=== PATIENT | female | born 1970 | race African-American/Black ===

== ENCOUNTER 2018-01-07 19:14 | Day surgery (SDC) | payer BC ==
[2018-01-07] MEDS ORDERED: ONDANSETRON 4 MG/2 ML VIAL IVPUSH ONE (19:42)
[2018-01-07] MEDS ORDERED: SODIUM CHLORIDE 0.9% 500 ML INFUS.BAG IV ONE (19:42)
[2018-01-07] MEDS ORDERED: ACETAMINOPHEN 1000 MG/100 ML VIAL (NON FORMULARY) IVPB ONE (19:50)
[2018-01-07] MEDS ORDERED: ONDANSETRON 4 MG/2 ML VIAL ONE (19:51)
[2018-01-07] MEDS ORDERED: ACETAMINOPHEN INJECTION 100 ML IVPB ONE (19:51)
[2018-01-07 19:55] LABS: URINE APPEARANCE Clear; URINE BILIRUBIN Negative (NEGATIVE); URINE COLOR Yellow; URINE GLUCOSE (UA) Negative (NEGATIVE); URINE KETONE Negative (NEGATIVE); URINE LEUK ESTERASE Negative (NEGATIVE); URINE NITRITE Negative (NEGATIVE); URINE PROTEIN Negative (NEGATIVE); URINE UROBILINOGEN 0.2 (0.2-1.0)
[2018-01-07 19:56] LABS: EOS % 1.6 % (0-4.5); HEMOGLOBIN 12.8 GM/dl (10.7-15.3); MCH 27.9 pg (25.7-33.7)
--- NOTE | 2018-01-07 19:59 | PDOC ---
History of Present Illness <Wes Hemphill - Last Filed: 01/07/18 21:53> - History of Present Illness Initial Comments: 01/07/18 20:28 The patient is a 47 year old female, with no significant past medical or surgical history, who presents to the emergency department with 3 weeks of intermittent epigastric discomfort, nausea, and NBNB vomiting. The patient describes her epigastric pain as radiating to her back and worsening after eating fried or greasy food. She reports the pain to be at its worse today and 5 days ago. Today her symptoms onset after eating bruschetta and drinking a glass of wine. She reports normal bowel movements. The patient reports doing a cleanse last night to help her move her bowels. She denies recent fevers, chills, headache or dizziness. She denies recent diarrhea or constipation. She denies recent dysuria, frequency, urgency or hematuria. She denies recent chest pain or shortness of breath. Allergies: NKA Past surgical history: None reported. Social history: Social alcohol use. Nonsmoker. Denies recreational drug use. <Federica Soria - Last Filed: 01/07/18 22:44> - General Chief Complaint: Pain Stated Complaint: EPIGASTRICPAIN Time Seen by Provider: 01/07/18 19:41 Past History <Wes Hemphill - Last Filed: 01/07/18 21:53> - Past Medical History COPD: No Other medical history: DENIES - Immunization History Td Vaccination: No - Suicide/Smoking/Psychosocial Hx Smoking Status: No Smoking History: Never smoked Years of Tobacco Use: 0 Number of Cigarettes Smoked Daily: 0 Information on smoking cessation initiated: No Hx Alcohol Use: Yes (2-3 TIMES/WEEK) Drug/Substance Use Hx: No Substance Use Type: Alcohol <Federica Soria - Last Filed: 01/07/18 22:44> - Past Medical History Allergies/Adverse Reactions: Allergies Allergy/AdvReac Type Severity Reaction Status Date / Time No Known Allergies Allergy Unverified 01/07/18 19:16 Home Medications: Ambulatory Orders NK [No Known Home Medication] 01/07/18 Review of Systems - Review of Systems Comments:: 01/07/18 19:59 GENERAL/CONSTITUTIONAL: No fever or chills. No weakness. HEAD, EYES, EARS, NOSE AND THROAT: No change in vision. No ear pain or discharge. No sore throat. GASTROINTESTINAL: +nausea, vomiting, abd pain, no diarrhea or constipation. GENITOURINARY: No dysuria, frequency, or change in urination. CARDIOVASCULAR: No chest pain or shortness of breath. RESPIRATORY: No cough, wheezing, or hemoptysis. MUSCULOSKELETAL: No joint or muscle swelling or pain. No neck or back pain. SKIN: No rash NEUROLOGIC: No headache, vertigo, loss of consciousness, or change in strength/ sensation. ENDOCRINE: No increased thirst. No abnormal weight change. HEMATOLOGIC/LYMPHATIC: No anemia, easy bleeding, or history of blood clots. ALLERGIC/IMMUNOLOGIC: No hives or skin allergy. <Federica Soria - Last Filed: 01/07/18 22:44> *Physical Exam - Vital Signs Last Vital Signs Temp Pulse Resp BP Pulse Ox 99.4 F 96 H 18 130/84 100 01/07/18 19:15 01/07/18 19:15 01/07/18 19:15 01/07/18 19:15 01/07/18 19:15 <Wes Hemphill - Last Filed: 01/07/18 21:53> - Vital Signs Last Vital Signs Temp Pulse Resp BP Pulse Ox 99.4 F 96 H 18 130/84 100 01/07/18 19:15 01/07/18 19:15 01/07/18 19:15 01/07/18 19:15 01/07/18 19:15 - Physical Exam Comments: 01/07/18 20:02 GENERAL: Awake, alert, and fully oriented, appears uncomfortable. HEAD: No signs of trauma EYES: PERRLA, EOMI, sclera anicteric, conjunctiva clear ENT: Auricles normal inspection, hearing grossly normal, nares patent, oropharynx clear without exudates. Moist mucosa NECK: Normal ROM, supple, no lymphadenopathy, JVD, or masses LUNGS: Breath sounds equal, clear to auscultation bilaterally. No wheezes, and no crackles HEART: Regular rate and rhythm, normal S1 and S2, no murmurs, rubs or gallops ABDOMEN: Soft, +mild epigastric and RUQ ttp, equivocal grewal's sign, normoactive bowel sounds. No guarding, no rebound. No masses. Denies CVAT. EXTREMITIES: Normal range of motion, no edema. No clubbing or cyanosis. No cords, erythema, or tenderness. WWP, equal pulses b/l. NEUROLOGICAL: Normal speech, cranial nerves intact, negative pronator drift, 5/ 5 strength in all 4 extremities, normal sensation to light touch in all 4 extremities, normal cerebellar exam, normal reflexes and tone. SKIN: Warm, Dry, normal turgor, no rashes or lesions noted. <Yang,Justina - Last Filed: 01/07/18 22:44> ED Treatment Course - LABORATORY CBC & Chemistry Diagram: 01/07/18 19:45 01/07/18 19:45 - ADDITIONAL ORDERS Additional order review: Laboratory Results 01/07/18 01/07/18 01/07/18 19:48 19:48 19:45 PTT (Actin FS) Sodium 134 L Potassium 3.8 Chloride 105 Carbon Dioxide 25 Anion Gap 4 L BUN 10 Creatinine 0.7 Creat Clearance w eGFR > 60 Random Glucose 117 H Calcium 8.7 Total Bilirubin < 0.3 AST 22 ALT 20 Alkaline Phosphatase 96 H Troponin I < 0.03 Total Protein 7.6 Albumin 3.6 Urine Color Yellow Urine Appearance Clear Urine pH 6.0 Ur Specific [place] >= 1.030 H Urine Protein Negative Urine Glucose (UA) Negative Urine Ketones Negative Urine Blood Trace-intact H Urine Nitrite Negative Urine Bilirubin Negative Urine Urobilinogen 0.2 Ur Leukocyte Esterase Negative Urine RBC 2-5 Urine WBC 0-2 Urine Bacteria Few 01/07/18 19:45 PTT (Actin FS) 27.0 Sodium Potassium Chloride Carbon Dioxide Anion Gap BUN Creatinine Creat Clearance w eGFR Random Glucose Calcium Total Bilirubin AST ALT Alkaline Phosphatase Troponin I Total Protein Albumin Urine Color Urine Appearance Urine pH Ur Specific [place] Urine Protein Urine Glucose (UA) Urine Ketones Urine Blood Urine Nitrite Urine Bilirubin Urine Urobilinogen Ur Leukocyte Esterase Urine RBC Urine WBC Urine Bacteria 01/07/18 19:45 RBC 4.58 MCV 85.9 MCHC 32.5 RDW 13.7 MPV 9.7 Neutrophils % 51.0 Lymphocytes % 32.9 Monocytes % 10.2 Eosinophils % 1.6 Basophils % 4.3 H - Medications Given in the ED: ED Medications Discontinued Medications Generic Name Dose Route Start Last Admin Trade Name Freq PRN Reason Stop Dose Admin Acetaminophen 1,000 mg 01/07/18 19:50 01/07/18 19:56 Ofirmev Injection - IVPB 01/07/18 19:51 1,000 mg ONCE ONE Administration Ondansetron HCl 4 mg 01/07/18 19:42 01/07/18 19:56 Zofran Injection IVPUSH 01/07/18 19:43 4 mg ONCE ONE Administration Sodium Chloride 1,000 ml 01/07/18 19:42 01/07/18 19:49 Normal Saline - IV 01/07/18 19:43 1,000 ml ONCE ONE Administration <Wes Hemphill - Last Filed: 01/07/18 21:53> - LABORATORY CBC & Chemistry Diagram: 01/07/18 19:45 01/07/18 19:45 - RADIOLOGY Radiology Studies Ordered: Category Date Time Status ABDOMEN US -LIMITED [US] Stat Ultrasound 01/07/18 19:42 Ordered - Medications Given in the ED: ED Medications Discontinued Medications Generic Name Dose Route Start Last Admin Trade Name Freq PRN Reason Stop Dose Admin Sodium Chloride 1,000 ml 01/07/18 19:42 01/07/18 19:49 Normal Saline - IV 01/07/18 19:43 1,000 ml ONCE ONE Administration <Nassef,Yomna - Last Filed: 01/07/18 22:44> Medical Decision Making - Medical Decision Making 01/07/18 9:36pm Call placed to Dr. Thompson, surgeon construction electrician, case was discussed. <Wes Hemphill - Last Filed: 01/07/18 21:53> - Medical Decision Making 01/07/18 20:03 47-year-old female with no significant past medical history presents emergency Department with intermittent progressive epigastric pain for 4 weeks. Vitals with low-grade fever to 99.6. Exam with mild epigastric and RUQ tenderness to palpation. Differential includes but not limited to pancreatitis versus cholecystitis versus gastritis. Plan: -labs -UA -US -pain meds -antiemetics -IVF -reassess 01/07/18 21:50 Labs with elevated alk phos to 90s, otherwise wnl US on my read with multiple stones, one in neck, and wall thickening consistent with likely acute jamal Case discussed with Dr. Thompson who requests admission to [facility]. Will cover with Zosyn. Pt to be admitted to Dr. Thompson service ([facility]) <Federica Soria - Last Filed: 01/07/18 22:44> *DC/Admit/Observation/Transfer - Attestations Scribe Attestion: 01/07/18 20:32 Documentation prepared by Wes Hemphill, acting as director medical writing for Federica Soria MD. <Wes Hemphill - Last Filed: 01/07/18 21:53> - Discharge Dispostion Decision to Admit order: Yes - Attestations Physician Attestion: 01/07/18 22:21 I, Dr. Federica Soria MD, attest that this document has been prepared under my direction and personally reviewed by me in its entirety. I further attest, that it accurately reflects all work, treatment, procedures and medical decision -making performed by me. <Federica Soria - Last Filed: 01/07/18 22:44> Diagnosis at time of Disposition: Acute cholecystitis - Discharge Dispostion Condition at time of disposition: Stable
[2018-01-07 20:00] LABS: BASO % 4.3 % (0-2.0); HEMATOCRIT 39.3 % (32.4-45.2); LYMPH % 32.9 % (8-40); MCHC 32.5 g/dl (32.0-36.0); MEAN CELL VOLUME 85.9 fl (80-96); MEAN PLT VOLUME 9.7 fl (7.5-11.1); MONO % 10.2 % (3.8-10.2); PLATELET COUNT 267 K/MM3 (134-434); RBC 4.58 M/mm3 (3.60-5.2); RDW 13.7 % (11.6-15.6)
[2018-01-07 20:12] LABS: ALBUMIN 3.6 g/dl (3.5-5.0); ALK PHOS 96 U/L (32-92); ANION GAP 4 (8-16); BLOOD UREA NITROGEN 10 mg/dl (7-18); CALCIUM 8.7 mg/dl (8.4-10.2); CHLORIDE 105 mmol/L (98-107); CO2 25 mmol/L (22-28); CREATININE 0.7 mg/dl (0.6-1.3); GLUCOSE,RANDOM 117 mg/dl (74-106); POTASSIUM 3.8 mmol/L (3.5-5.1); SGOT/AST 22 U/L (10-42); SGPT/ALT 20 U/L (10-40); SODIUM 134 mmol/L (136-145); TOT PROT 7.6 g/dl (6.4-8.3)
[2018-01-07 20:13] LABS: BILIRUBIN,TOTAL < 0.3 mg/dl (0.2-1.0)
[2018-01-07 20:18] LABS: URINE WBC 0-2 (0-5)
[2018-01-07 20:19] LABS: URINE BACTERIA FEW /hpf (NEGATIVE)
[2018-01-07] MEDS ORDERED: morphine CARPU-JECT 4 MG/1 ML DISP.SYRIN IVPUSH ONE ×2 (20:38→22:08)
[2018-01-07 21:04] LABS: LIPASE 89 U/L (73-393)
[2018-01-07] MEDS ORDERED: morphine SULFATE 4 MG/ML VIAL ONE ×2 (21:11→22:14)
[2018-01-07] MEDS ORDERED: PIPERACILLIN/TAZOB 4.5 GM 4.5 GM in DEXTROSE 5%-WATER - 100 ML IVPB ONE (22:09)
[2018-01-07] MEDS ORDERED: PIPERACILLIN/TAZOBACTAM 4.5 GM VIAL IVPB ONE (22:15)
[2018-01-08 01:23] VITALS: BMI 49.8
[2018-01-08] MEDS ORDERED: ONDANSETRON 4 MG/2 ML VIAL IVPUSH PRN ×3 (05:16→20:08)
[2018-01-08] MEDS ORDERED: morphine SULFATE 4 MG/ML VIAL IVPUSH PRN (05:16)
--- NOTE | 2018-01-08 05:25 | HP ---
Admitting History and Physical - Admission Chief Complaint: abdominal pain History of Present Illness: 47 yo female PMH morbid obesity, cholelithiasis presents to the emergency department with 3 weeks of intermittent epigastric discomfort, nausea, and NBNB vomiting. The patient describes her epigastric pain as radiating to her back and worsening after eating fried or greasy food. She reports the pain to be at its worse today and 5 days ago. Today her symptoms onset after eating bruschetta and drinking a glass of wine. She reports normal bowel movements. The patient reports doing a cleanse last night to help her move her bowels. We were asked to assess. History Source: Patient, Medical Record Limitations to Obtaining History: No Limitations - Past Medical History ...: No Additional Past Medical History: Morbid obesity - Smoking History Smoking history: Never smoked Have you smoked in the past 12 months: No Aproximately how many cigarettes per day: 0 - Alcohol/Substance Use Hx Alcohol Use: Yes (2-3 TIMES/WEEK) History of Substance Use: reports: None - Social History ADL: Independent History of Recent Travel: No Home Medications - Allergies Allergies/Adverse Reactions: Allergies Allergy/AdvReac Type Severity Reaction Status Date / Time No Known Allergies Allergy Unverified 01/07/18 19:16 - Home Medications Home Medications: Ambulatory Orders NK [No Known Home Medication] 01/07/18 Review of Systems - Review of Systems Constitutional: denies: Chills, Fever, Loss of Appetite Eyes: denies: Blurred Vision, Recent Change in Vision HENT: denies: Difficult Swallowing, Throat Pain Neck: denies: Pain on Movement, Swollen Glands, Tenderness Cardiovascular: denies: Chest Pain, Palpitations Respiratory: denies: Cough, SOB Gastrointestinal: reports: Abdominal Pain, Indigestion, Nausea, Vomiting Genitourinary: denies: Discharge, Dysuria, Flank Pain, Frequency Breasts: reports: No Symptoms Reported. denies: Pain Musculoskeletal: denies: Muscle Cramps, Muscle Weakness Integumentary: denies: Eczema, Erythema, Lesions Neurological: denies: Seizure, Syncope Endocrine: denies: Unexplained Weight Gain, Unexplained Weight Loss Hematology/Lymphatic: denies: Easily Bruised, Excessive Bleeding Psychiatric: denies: Anxiety, Depression Physical Examination Vital Signs: Vital Signs Temperature 97.6 F 01/08/18 01:00 Pulse Rate 95 H 01/08/18 01:00 Respiratory Rate 20 07/26/18 01:00 Blood Pressure 122/66 01/08/18 01:00 O2 Sat by Pulse Oximetry (%) 99 01/08/18 01:00 Constitutional: Yes: No Distress, Calm, Obese Eyes: Yes: Conjunctiva Clear, EOM Intact HENT: Yes: Atraumatic, Normocephalic Neck: Yes: Supple, Trachea Midline Cardiovascular: Yes: Regular Rate and Rhythm, S1, S2 Respiratory: Yes: Regular, CTA Bilaterally Gastrointestinal: Yes: Normal Bowel Sounds, Soft, Abdomen, Obese, Tenderness ( RUQ tendeness with positive murphys), Tenderness, Epigastrium. No: Distention ...Rectal Exam: Yes: Deferred Renal/: No: CVA Tenderness - Left, CVA Tenderness - Right Musculoskeletal: No: Muscle Pain, Muscle Weakness Extremities: No: Cool, Cyanosis Edema: No Peripheral Pulses WNL: Yes Peripheral Pulses: Left Radial: 2+, Right Radial: 2+, Left Doralis Pedis: 2+, Right Dorsalis Pedis: 2+ Neurological: Yes: Alert Psychiatric: Yes: Alert, Oriented Labs: CBC, BMP 01/07/18 19:45 01/07/18 19:45 CBC,CMP WBC 9.0 K/mm3 (4.0-10.8) 01/07/18 19:45 RBC 4.58 M/mm3 (3.60-5.2) 01/07/18 19:45 Hgb 12.8 GM/dl (10.7-15.3) 01/07/18 19:45 Hct 39.3 % (32.4-45.2) 01/07/18 19:45 MCV 85.9 fl (80-96) 01/07/18 19:45 MCH 27.9 pg (25.7-33.7) 01/07/18 19:45 MCHC 32.5 g/dl (32.0-36.0) 01/07/18 19:45 RDW 13.7 % (11.6-15.6) 01/07/18 19:45 Plt Count 267 K/MM3 (134-434) 01/07/18 19:45 MPV 9.7 fl (7.5-11.1) 01/07/18 19:45 Absolute Neuts (auto) 4.6 # 01/07/18 19:45 Neutrophils % 51.0 % (42.8-82.8) 01/07/18 19:45 Lymphocytes % 32.9 % (8-40) 01/07/18 19:45 Monocytes % 10.2 % (3.8-10.2) 01/07/18 19:45 Eosinophils % 1.6 % (0-4.5) 01/07/18 19:45 Basophils % 4.3 % (0-2.0) H 01/07/18 19:45 Sodium 134 mmol/L (136-145) L 01/07/18 19:45 Potassium 3.8 mmol/L (3.5-5.1) 01/07/18 19:45 Chloride 105 mmol/L (98-107) 01/07/18 19:45 Carbon Dioxide 25 mmol/L (22-28) 01/07/18 19:45 Anion Gap 4 (8-16) L 01/07/18 19:45 BUN 10 mg/dl (7-18) 01/07/18 19:45 Creatinine 0.7 mg/dl (0.6-1.3) 01/07/18 19:45 Creat Clearance w eGFR > 60 (>60) 01/07/18 19:45 Random Glucose 117 mg/dl (74-106) H 01/07/18 19:45 Calcium 8.7 mg/dl (8.4-10.2) 01/07/18 19:45 Total Bilirubin < 0.3 mg/dl (0.2-1.0) 01/07/18 19:45 AST 22 U/L (10-42) 01/07/18 19:45 ALT 20 U/L (10-40) 01/07/18 19:45 Alkaline Phosphatase 96 U/L (32-92) H 01/07/18 19:45 Troponin I < 0.03 ng/ml (0.00-0.06) 01/07/18 19:48 Total Protein 7.6 g/dl (6.4-8.3) 01/07/18 19:45 Albumin 3.6 g/dl (3.5-5.0) 01/07/18 19:45 Lipase 89 U/L (73-393) 01/07/18 19:45 Imaging - Results Ultrasound: Report Reviewed, Image Reviewed (early cholecystitis many stones in the gall bladder, normal CBD) Problem List - Problems (1) Calculous cholecystitis Assessment/Plan: 47 yo female with Acute on chronic cholecystitis NPO and IVF hydration IV antibiotics Adequate analgesia Discussed with patient risks, benefits and alternatives of laparoscopic possible open cholecystectomy, including but not limited to bleeding, infection , injury to adjacent structures, leak or injury, intraabdominal abscess, need for further procedures, ; alternatives include antibiotics, delayed or no surgery - risks of this include failure of nonoperative therapy, perforation, sepsis, recurrence, . Patient desires to proceed with operation - will take to OR for above. Informed consent signed for same. Code(s): K80.10 - CALCULUS OF GALLBLADDER W CHRONIC CHOLECYST W/O OBSTRUCTION Qualifiers: Cholecystitis acuity: acute and chronic Biliary obstruction: without biliary obstruction Qualified Code(s): K80.12 - Calculus of gallbladder with acute and chronic cholecystitis without obstruction (2) Abdominal pain in female patient Code(s): R10.9 - UNSPECIFIED ABDOMINAL PAIN (3) Obesity (BMI 35.0-39.9 without comorbidity) Code(s): E66.9 - OBESITY, UNSPECIFIED (4) Acute cholecystitis Code(s): K81.0 - ACUTE CHOLECYSTITIS (5) Cholelithiasis Code(s): K80.20 - CALCULUS OF GALLBLADDER W/O CHOLECYSTITIS W/O OBSTRUCTION Qualifiers: Cholelithiasis location: gallbladder Cholecystitis acuity: acute and chronic Biliary obstruction: without biliary obstruction (6) Biliary colic Code(s): K80.50 - CALCULUS OF BILE DUCT W/O CHOLANGITIS OR CHOLECYST W/O OBST
[2018-01-08] MEDS: HEPARIN NA (PORCINE) 5,000 UNITS/ML 1ML VIAL SQ SCH ×3 (06:44→22:18)
[2018-01-08] MEDS: LACTATED RINGERS SOLUTION 1,000 ML IV SCH ×4 (06:44→22:21)
[2018-01-08] MEDS ORDERED: PANTOPRAZOLE 40 MG TABLET (FP) PO SCH (10:00)
[2018-01-08 10:06] LABS: ALBUMIN 2.9 g/dl (3.4-5.0); ALK PHOS 96 U/L (45-117); ANION GAP 4 (8-16); BILIRUBIN,TOTAL 0.3 mg/dL (0.2-1.0); BLOOD UREA NITROGEN 7 mg/dL (7-18); CALCIUM 8.5 mg/dL (8.5-10.1); CHLORIDE 109 mmol/L (98-107); CO2 28 mmol/L (21-32); CREATININE 0.7 mg/dL (0.55-1.02); GLUCOSE,RANDOM 77 mg/dL (74-106); LIPASE 48 U/L (73-393); POTASSIUM 4.7 mmol/L (3.5-5.1); SGOT/AST 19 U/L (15-37); SGPT/ALT 25 U/L (12-78); SODIUM 141 mmol/L (136-145); TOT PROT 6.5 g/dl (6.4-8.2)
--- NOTE | 2018-01-08 14:32 | EKG ---
Test Reason : Blood Pressure : / mmHG Vent. Rate : 092 BPM Atrial Rate : 092 BPM P-R Int : 178 ms QRS Dur : 074 ms QT Int : 376 ms P-R-T Axes : 034 -05 005 degrees QTc Int : 464 ms NORMAL SINUS RHYTHM WITH SINUS ARRHYTHMIA NORMAL ECG NO PREVIOUS ECGS AVAILABLE Confirmed by KORI GLOVER, ZA ([id number]) on 01/08/2018 2:32:16 PM Referred By: MD LEWIS Confirmed By:ZA SHEIKH MD
[2018-01-08] MEDS ORDERED: fentaNYL CITRATE 250 MCG/5 ML VIAL ONE (14:36)
[2018-01-08] MEDS ORDERED: PROMETHAZINE HCL 25 MG/1 ML VIAL IVPUSH PRN (17:44)
[2018-01-08] MEDS ORDERED: LACTATED RINGERS SOLUTION 1,000 ML IV SCH (17:45)
[2018-01-08] MEDS ORDERED: PROPOFOL 20 ML ONE ×3 (17:56→19:24)
[2018-01-08] MEDS ORDERED: MIDAZOLAM HCL 2 MG/2 ML SINGLE DOSE VIAL ONE (17:56)
[2018-01-08] MEDS ORDERED: LIDOCAINE HCL/PF 2% SDV 5ML VIAL ONE (17:57)
[2018-01-08] MEDS ORDERED: CEFOXITIN SODIUM 2 GM IVPB ONE (18:34)
[2018-01-08] MEDS ORDERED: SODIUM CHLORIDE 0.9% P/F 10 ML VIAL IJ ONE (18:37)
[2018-01-08] MEDS ORDERED: cefOXitin SODIUM 1 GM VIAL (RESTRICTED TO ID) IVPB ONE (18:39)
[2018-01-08] MEDS ORDERED: BUPIVACAINE HCL/PF 0.5% (5MG/ML) 10 ML VIAL IJ ONE (19:04)
[2018-01-08] MEDS ORDERED: BUPIVACAINE HCL/PF 0.5% (5MG/ML) 10 ML VIAL ONE (19:05)
[2018-01-08] MEDS ORDERED: KETOROLAC TROMETHAMINE 30 MG/1 ML VIAL ONE (19:19)
[2018-01-08] MEDS ORDERED: GLYCOPYRROLATE 0.2 MG/1 ML VIAL ONE (19:28)
[2018-01-08] MEDS ORDERED: NEOSTIGMINE METHYLSULFATE 0.5 MG/ML - 10 ML MDV ONE (19:29)
--- NOTE | 2018-01-08 19:55 | OP ---
Operative Note - Note: Operative Date: 01/08/18 Pre-Operative Diagnosis: acute on chronic cholecystitis Operation: Laparoscopic Cholecystectomy Findings: distended and chronically adherent gallbladder with large stone. critical view identified. counts were correct Post-Operative Diagnosis: Same as Pre-op Surgeon: Gopi Thompson Project Finance Analyst: Jean Pierre Schilling Anesthesiologist/WALLPAPER EMBOSSER HELPER: Tyrone Rowley Anesthesia: General, Local (Marcaine 0.5% 20ml) Specimens Removed: Gallbladder and stone Estimated Blood Loss (mls): 20 Fluid Volume Replaced (mls): 400 Operative Report Dictated: Yes
[2018-01-08] MEDS ORDERED: ONDANSETRON 4 MG/2 ML VIAL ONE (19:56)
[2018-01-08] MEDS ORDERED: ACETAMINOPHEN 325 MG TABLET (FP) PO PRN ×2 (19:58→20:08)
[2018-01-08] MEDS ORDERED: IBUPROFEN 600 MG TABLET (FP) PO PRN (19:58)
[2018-01-08] MEDS: morphine SULFATE 4 MG/ML VIAL IVPUSH PRN (22:37)
[2018-01-09] MEDS: LACTATED RINGERS SOLUTION 1,000 ML IV SCH (00:08)
[2018-01-09] MEDS: HEPARIN NA (PORCINE) 5,000 UNITS/ML 1ML VIAL SQ SCH ×2 (05:30→15:29)
[2018-01-09] MEDS: morphine SULFATE 4 MG/ML VIAL IVPUSH PRN (05:54)
--- NOTE | 2018-01-09 08:57 | DS ---
Physical Examination Vital Signs: Vital Signs Temperature 98.8 F 01/09/18 06:45 Pulse Rate 93 H 01/09/18 06:45 Respiratory Rate 20 01/09/18 06:45 Blood Pressure 118/79 01/09/18 06:45 O2 Sat by Pulse Oximetry (%) 98 01/08/18 23:06 Vital Signs Period Temp Pulse Resp BP Sys/Baker Pulse Ox Last 24 Hr 97.4 F-98.8 F 63-93 16-22 118-158/58-96 95-98 Findings/Remarks: Stable overnight. Afebrile, tolerating diet, ambulating and voiding. She has no complaints and feels well. Constitutional: Yes: No Distress, Calm, Obese Eyes: Yes: Conjunctiva Clear, EOM Intact HENT: Yes: Atraumatic, Normocephalic Neck: Yes: Supple, Trachea Midline Cardiovascular: Yes: Regular Rate and Rhythm, S1, S2 Respiratory: Yes: Regular, CTA Bilaterally Gastrointestinal: Yes: Normal Bowel Sounds, Soft, Abdomen, Obese, Tenderness ( periumbilical). No: Tenderness, Epigastrium, Tenderness, Rebound Renal/: No: CVA Tenderness - Left, CVA Tenderness - Right Musculoskeletal: No: Muscle Pain, Muscle Weakness Extremities: No: Cool, Cyanosis Edema: No Peripheral Pulses WNL: Yes Peripheral Pulses: Left Radial: 2+, Right Radial: 2+, Left Doralis Pedis: 2+, Right Dorsalis Pedis: 2+ Neurological: Yes: Alert, Oriented Psychiatric: Yes: Alert, Oriented Labs: CBC, BMP 01/07/18 19:45 01/08/18 09:02 Discharge Summary Reason For Visit: EPIGASTRIC PAIN Current Active Problems Abdominal pain in female patient (Acute) Acute cholecystitis (Acute) Biliary colic (Acute) Calculous cholecystitis (Acute) Cholelithiasis (Acute) Obesity (BMI 35.0-39.9 without comorbidity) (Acute) Procedures: Principal: Laparoscopic cholecystetcomy Hospital Course: Admitted for urgent surgery. Uneventful surgical procedure. Stable overnight and ready for discharge home. Time spent reviewing chart, examining patient, talking with providers and/or family and documentation is 35 minutes Condition: Improved - Instructions Diet, Activity, Other Instructions: Postoperative instructions: You had a laparoscopic cholecystectomy on 01/08/[address] Gopi Thompson of [facility]. Activity: Resume your usual activities gradually, but no heavy exertion or lifting more than 10-15 pounds for 1 month. You may shower daily starting then, just pat the incision areas dry. Eat lightly at first, but advance to your usual diet as tolerated. Pain: For pain, you may use and alternate Tylenol (acetaminophen) and/or ibuprofen every 6 hours each as needed; this means that you can take one OR the other at 3-hour intervals. If you are prescribed a Tylenol/narcotic combination for severe pain, use it instead of plain Tylenol as needed and switch back when your pain starts decreasing. Do not take more than 4000mg of acetaminophen in a day. Take medications as prescribed or indicated on the labeling. Follow-up: Call Dr. Thompson' office at [phone] to make your postop appointment (Friday ~2 weeks after surgery). Clinic is held in the Diagnostic Center on the first floor of [facility]. Call the office if you have: * increasing pain not responsive to pain medication * fever of 101F or higher * vomiting * unusual or increasing bleeding or drainage from wounds * increasing redness or swelling at wound sites * inability to urinate Also, see your primary medical doctor within 1-2 weeks. Referrals: Gopi Thompson MD [Staff Physician] - Disposition: HOME - Home Medications Comprehensive Discharge Medication List: Ambulatory Orders Oxycodone HCl/Acetaminophen [Percocet 5/325 -] 1 tab PO Q6H #40 tab MDD 5
[2018-01-09] MEDS ORDERED: PANTOPRAZOLE 40 MG TABLET (FP) PO SCH (10:00)
[2018-01-09] MEDS: IBUPROFEN 600 MG TABLET (FP) PO PRN ×2 (11:27→17:47)
[2018-01-09 15:22] VITALS: BP 135/84; PULSE 78; TEMP 98.7
--- NOTE | 2018-01-12 12:49 | PATH ---
Surgical Pathology Report Patient Name: ADAN MARTINEZ [facility]. Rec. #: [id number] /Age/Gender: 1970 (Age: 47) / F Account: <[id number]> Location: [facility] R Taken: 01/08/2018 Received: 01/09/2018 Reported: 01/12/2018 Physicians: Gopi Thompson M.D. Specimen(s) Received GALLBLADDER Clinical History Acute/chronic cholecystitis Final Diagnosis GALLBLADDER, LAPAROSCOPIC CHOLECYSTECTOMY: ACUTE AND CHRONIC CHOLECYSTITIS AND CHOLELITHIASIS. ONE BENIGN PERIDUCTAL LYMPH NODE (0/1). Electronically Signed Kim Rouse M.D. Gross Description Received in formalin, labeled "gallbladder," is a 9.7 x 3.3 x 3.2 cm. gallbladder with a 0.2 cm. in length portion of cystic duct attached. There is a 1.4 cm greatest dimension periductal lymph node present. The outer surface is espino-brown and varies from smooth to shaggy. The lumen contains green, tenacious bile as well as abundant brown, irregular choleliths averaging 2.5 cm in greatest dimension. The mucosa is green and focally eroded. The wall of the gallbladder ranges from 0.1-0.4 cm. in thickness. [employer] Developer sections are submitted in 2 cassettes as follows: 1-cystic duct margin and one whole bisected lymph node; 2-compliance representative gallbladder mucosa. /01/09/2018 saudi01/09/2018
--- NOTE | 2018-01-20 07:54 | OP ---
DATE OF OPERATION: 01/08/2018 PREOPERATIVE DIAGNOSIS: [id number] cholecystitis. POSTOPERATIVE DIAGNOSIS: [id number] cholecystitis. PROCEDURE: Laparoscopic cholecystectomy. ATTENDING SURGEON: Gopi Thompson MD ASSISTED LIVING COORDINATOR: Jean Pierre Schilling MD ANESTHESIOLOGIST: Marizol Rowley MD ANESTHESIA TYPE: General with local. Local consisted of 0.5% Marcaine. A total of 20 mL given in an area block fashion at the port sites. ESTIMATED BLOOD LOSS: 20 mL INTRAVENOUS FLUID ADMINISTERED: 400 mL SPECIMEN SENT: Gallbladder with stone. FINDINGS: Patient had a distended, chronically adherent gallbladder with a large stone. Critical view was identified. Counts were correct at the conclusion of the case. INDICATION: Patient is a 47-year-old female presenting with right upper quadrant abdominal pain. She was counseled, after ultrasound confirmed the presence of cholecystitis, regarding risks, benefits, and alternatives to surgical laparoscopic cholecystectomy, signed informed consent, was taken for the procedure. DESCRIPTION OF PROCEDURE: Patient was brought to the operating room. She was placed in supine position on the operating table with the left arm extended at 90 degrees perpendicular to the body's midline axis and the right arm tucked. She had lower extremity SCDs placed. She was induced with general anesthesia, endotracheally intubated. She received intravenous Mefoxin prior to the start of surgery. We began first with sterile prep and drape of the anterior abdominal wall, blocking the upper abdomen for a laparoscopic entry. After a formal timeout identifying the operative site and procedure, we began first with a supraumbilical Nely approach. A 12-mm skin incision was opened with a 15-blade scalpel, deepened and widened through the subcutaneous fat to the midline fascia of the rectus which was identified and elevated. The midline fascia was then scored with Bovie cautery, and a blunt entry was made towards the umbilicus. The 12-mm Nely port was then installed into the abdomen, and pneumoperitoneum was established to 15 mmHg. We began first with inspection of the entry site which appeared atraumatic, and then, we began to inspect the liver's margin in the right upper quadrant, where the gallbladder lay. Additional operative ports, one at the subxiphoid position and 2 in the right abdomen were installed under direct visualization. We then began to retract the gallbladder cranially and towards the left shoulder to allow for inspection of the infundibulum and a dissection of the cystic structures. The cystic duct and cystic artery were identified, and the planes were developed to isolate them into the critical view. The critical view was used to identify the cystic structures as they coursed towards the gallbladder in proper orientation. The hepatic plate was identified behind it. After completing this dissection, 5-mm clips were used to control the cystic structures, and they were divided with EndoShears. Upon completion, the gallbladder was then elevated from the hepatic bed using Bovie cautery hook under direct visualization. Care was taken to completely remove the gallbladder from the umbilical port, after resiting the camera to the subxiphoid position with an Endo Catch bag. After this was done, the gallbladder was passed off for final pathologic diagnosis. The liver's bed was then inspected for hemostasis and obtained using Bovie cautery. We then proceeded with irrigation of the site. The patient was returned to anatomic position, and the remainder of the trocars was removed. The pneumoperitoneum was relieved. The port sites were then injected with Marcaine 0.5% to provide an area block. The skin was closed, abating the Nely entry port with a 0 Vicryl in a [id number], and the skin closures were subcuticular using 4-0 Monocryl in interrupted fashion and a subcuticular closure at the umbilicus. The skin was cleaned. Sterile dressings were placed including benzoin and Steri-Strips, gauze sponges, and Tegaderms. Patient was awoken from general anesthesia, having tolerated the procedure well. She was stable throughout. All counts were correct prior to closure of the abdomen. MD JOAQUÍN Miner/[id number]
== END 2018-01-09 18:45 | disposition home or self-care (01) ==
LOC: FER 19:14 → J6S 01-08 01:00 → UNDOADMIN 01-08 01:00 → JASUSAT 01-08 01:00 → J6S 01-08 01:00 → JASUSAT 01-09 18:45
PROC: 0FT44ZZ Resection of Gallbladder, Percutaneous Endoscopic Approach (ICD-10-PCS; principal; 2018-01-08 12:00)
DX: K81.2 Acute cholecystitis with chronic cholecystitis (principal)
CPT/HCPCS: 36415; 76705-TC; 80053; 81003; 81015; 83690; 84484; 84703; 85025; 85730; 86850; 86900; 86901; 87086; 93005; 94010; 94760; 99283-25; J0131; J1644